=== PATIENT | male | born 1990 | race Caucasian/White ===

== ENCOUNTER 2025-02-14 09:16 | Emergency (ER) | payer SELFPAY ==
--- NOTE | ~2025-02-14 | XR_ITS ---
XR hip LT min 2V Ordering provider: Raisa Cade MD History: . pain . Comparison: None. FINDINGS: BONES: No acute fracture or dislocation. HIP JOINT SPACES: Normal. SACROILIAC JOINT SPACES/LUMBAR SPINE: The sacroiliac joint spaces are normal. Normal visualized lower lumbar spine. PUBIC SYMPHYSIS: Normal. SOFT TISSUES: Normal. IMPRESSION: No acute osseous abnormality pelvis and left hip. Reviewed, dictated and finalized at location A.
--- OUTSIDE RECORDS SUMMARY | 2025-02-14 09:20 | XMS_ITS | Clinical Summary ---
Author Organization [facility] Address [address] [place] [address] Care Team Providers Care Projection Printer Name Role Phone Unavailable Primary Care Provider Unavailabl e Immunizations Immunization Administration Dates Next Due Covid-19, Mrna, Lnp-s, PF, 5 0 mcg/0.25 mL dose (Moderna) 09/20/2021 Social History Tobacco Use Types Packs/Day Years Used Date Smoking Tobacco: Never Assessed Sex and Gender Information Value Date Recorded Sex Assigned at Not on file Legal Sex Male 10:10 PM CDT Gender Identity Not on file Sexual Orientation Not on file Plan of Treatment Health Maintenance Due Date Last Done Comments Hepatitis C Virus (HCV) Screening 1988 TdaP Immunization 1988 Hepatitis B Immunization (1 of 3 - 19+ 3-dose series) 2007 Influenza Immunization (#1) 2024 07/15/2014 SARS-COV-2 Immunization ( season) 2024 09/20/2021, 01/17/2021, 12/20/2020 Respiratory Syncytial Virus (RSV) Immunization (Adult) (1 - 1-dose 75+ series) 2063 DTaP/Tdap/Td Immunization Discontinued 01/30/1994 Meningococcal Immunization (ACWY) Aged Out No longer eligible based on patient's age to complete this topic Pneumococcal Immunization Combined Aged Out No longer eligible based on patient's age to complete this topic Rotavirus Immunization Aged Out No lo nger eligible based on patient's age to complete this topic
[2025-02-14 09:31] VITALS: BP 142/94; PULSE 75; RESP 16; TEMP 36.6; O2SAT 100
--- OUTSIDE RECORDS SUMMARY | 2025-02-14 10:20 | XMS_ITS | Clinical Summary ---
Author Organization [facility] Address [address] [place] [address] Care Team Providers Care Employee Representative Name Role Phone Unavailable Primary Care Provider [...]
[2025-02-14 10:27] VITALS: BP 144/92; PULSE 55; RESP 18; O2SAT 98
[2025-02-14] MEDS: CYCLOBENZAPRINE HCL 10 MG TABLET PO (11:04)
--- NOTE | 2025-02-14 11:04 | ED_ITS ---
HPI - Extremity Injury (Lower) General Chief Complaint: Extremity Injury, Lower Stated Complaint: L. hip pain x12 days Time Seen by Provider: 02/14/25 10:05 History of Present Illness HPI Narrative: Patient is a 34-year-old male who presents ER with left hip pain. Ongoing for 12 days radiates into the anterior thigh as well as the lateral malleolus and calf with anesthesia over the lateral ankle and calf. 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 No fevers or chills or sweats. No saddle anesthesia or difficulty with urination/defecation. No improvement with ibuprofen 800 mg twice a day. Related Data Allergies Allergy/AdvReac Type Severity Reaction Status Date / Time morphine Allergy Intermediate Rash Verified 02/14/25 10:20 Review of Systems Review of Systems: All systems reviewed & are unremarkable except as noted in HPI and below Constitutional: Constitutional: Reports no additional constitutional complaints Cardiovascular: Cardiovascular: Reports no additional cardiovascular complaint s Respiratory: Respiratory: Reports no additional respiratory complaints Musculoskeletal: Musculoskeletal: Reports no additional musculoskeletal complaints [facility] Past Medical History Medical History (Updated 02/14/25 @ 11:11 by Meng Patel MD) Healthy adult male Surgical History Surgical History (Updated 02/14/25 @ 11:09 by Meng Patel MD) No history of previous surgery Exam Narrative: GENERAL: Well-appearing, well-nourished, and in no acute distress. HEAD: Normocephalic, atraumatic. ENT: Mucous membranes moist. CHEST: Clear to auscultation. No respiratory distress. HEART: Regular rate and rhythm. Normal peripheral pulses. The back: No midline tenderness the T/L spine or paraspinal muscles. There is left SI tenderness. Positive straight leg raise on left side. EXTREMITIES: Normal range of motion. No edema. SKIN: Warm, dry, no rash. NEURO: Alert and oriented x3. PSYCH: Normal mood and affect. Course Course Emergency Course: Recommend anti-inflammatories muscle relaxers. Will place on Medrol Dosepak. Lifting restriction for work. Follow-up with PCP. Vital Signs Vital signs: Vital Signs Temperature 97.8 F 02/14/25 09:31 Pulse Rate 75 02/14/25 09:31 Respiratory Rate 16 02/14/25 09:31 Blood Pressure 142/94 H 02/14/25 09:31 Pulse Oximetry 100 02/14/25 09:31 Temperature 97.8 F 02/14/25 09:31 Pulse Rate 55 L 02/14/25 10:27 Respiratory Rate 18 02/14/25 10:27 Blood Pressure 144/92 H 02/14/25 10:27 Pulse Oximetry 98 02/14/25 10:27 MDM - Extremity Injury (Lower) Imaging Data Radiologist's impression: ITS Impressions Hip X-Ray 02/14/25 10:30 IMPRESSION: No acute osseous abnormality pelvis and left hip. Discharge Plan Discharge Clinical Impression: Sciatic leg pain Patient Disposition: Home Condition: Stable Instructions: Sciatica (ED) Additional Instructions: Please return to the emergency department if you develop severe pain that is not controlled by pain medications or if you are unable to walk because of pain or weakness. Return to the emergency department immediately if you develop fevers, loss of bowel or bladder control (dribbling of urine or having accidents you wouldn't normally have), inability to urinate, numbness of your genital or anal area, or weakness/numbness of your legs or arms as these could all be signs of a serious medical emergency. Patient Language: Bahraini Prescriptions: New methylprednisolone [Medrol (Chau)] 4 mg tablets,dose pack See Rx Instructions .ROUTE .COMPLEX Qty: 21 0RF Rx Instructions: for 6 days cyclobenzaprine 10 mg tablet 10 mg PO TID PRN (Reason: muscle spasm) Qty: 20 0RF Follow-up/Referrals: Luz Ravi DO [Physician] - 1 Week PHYSICIAN,LINEN ROOM SUPERVISOR [Primary Care Provider] -
[2025-02-14] MEDS: KETOROLAC (*BKC) 60 MG/2 ML VIAL IM (11:05)
== END 2025-02-14 11:26 | disposition home or self-care (01) ==
PROVIDERS: Emergency Provider Emergency Medicine
DX: M54.32 Sciatica, left side (principal)
CPT/HCPCS: 73502; 96372; 99283; A9270; J1885